=== PATIENT | female | born 1980 | race Caucasian/White ===

== ENCOUNTER 2021-10-11 16:57 | Emergency (ER) | payer MEDICAID, OTHER ==
[2021-10-11] MEDS ORDERED: IBUPROFEN 800 MG (MOTRIN) TAB PO STA (17:15)
[2021-10-11] MEDS ORDERED: HYDROcodone/APAP 5 MG/325 MG (LORTAB) TAB PO STA (17:15)
--- NOTE | 2021-10-11 17:36 | ED Lower Extremity ---
General Chief Complaint: Lower Extremity Stated Complaint: RT FOOT PAIN Source: patient History of Present Illness Date Seen by Provider: Oct 11, 2021 Time Seen by Provider: 17:03 Initial Comments 40-year-old female presenting with complaints of severe pain in her right ankle. She states that she had gone out the door and the ground was uneven. She had t wisted and rolled her ankle and had sudden severe pain. Started to bruise almost immediately. She also was not able to bear weight due to the pain. She has had some alcohol drinks this evening. She denies any fall or head injury. She denies having problems with that ankle or foot in the past. She has pain that radiates up her leg but no pain with palpation on her knee. She is visiting from [place] Onset: just prior to arrival Severity: severe Pain/Injury Location: right ankle Method of Injury: twisted Modifying Factors: Worse With Movement Allergies and Home Medications Allergies Coded Allergies: No Known Drug Allergies (Unverified , 10/11/21) Patient Home Medication List Home Medication List Reviewed: Yes Hydrocodone/Acetaminophen (Hydrocodone-Acetamin 5-325 mg) 5 Mg-325 Mg Tablet, 1 TAB PO Q4H PRN for PAIN-SEVERE (8-10) Prescribed by: ALFREDO MALIK on 10/11/211819 Ibuprofen (Ibuprofen) 800 Mg Tablet, 800 MG PO Q8H PRN for PAIN Prescribed by: ALFREDO MALIK on 10/11/211819 Review of Systems Constitutional: No chills, No fever EENTM: no symptoms reported Respiratory: no symptoms reported Cardiovascular: no symptoms reported Gastrointestinal: no symptoms reported Genitourinary: no symptoms reported Musculoskeletal: see HPI Skin: see HPI Psychiatric/Neurological: Anxiety, Other (burning sensation in ankle) Past Ubilbnx-Mzerfh-Csjumc Hx Patient Social History Alcohol Use?: Yes Alcohol type: Hard Liquor Physical Exam Vital Signs Vital Signs - First Documented 10/11/21 17:06 Temp 36.4 Pulse 105 Resp 18 B/P (MAP) 113/49 (70) Pulse Ox 97 O2 Delivery Room Air Capillary Refill : Height, Weight, BMI Height: '" Weight: lbs. oz. kg; BMI Method: General Appearance: severe distress (crying out in pain), obese Cardiovascular: normal peripheral pulses Ankles: right ankle ecchymosis (mild bruising starting to show up on lateral ankle and foot. ), right ankle limited range of motion, right ankle pain (severe pain with palpation and movement. decreased ROM due to pain), right ankle soft tissue tenderness, right ankle swelling Neurologic/Tendon: normal sensation Neurologic/Psychiatric: alert, oriented x 3 Skin: warm/dry, ecchymosis (faint bruising to right lateral ankle and foot) Progress/Results/Core Measures Results/Orders My Orders Orders - ALFREDO MALIK MD Hydrocodone/Apap 5/325 Tablet (Lortab 5 (10/11/21 17:15) Ibuprofen Tablet (Motrin Tablet) (10/11/21 17:15) Ice: Apply To Affected Area (10/11/21 17:20) Ankle 3 View Right (10/11/21 17:20) Crutches (10/11/21 18:00) Ed Ortho/Other Supplies Order (10/11/21 18:00) Orthopedic Equiment (10/11/21 18:00) Vital Signs/I&O 10/11/21 10/11/21 17:06 18:27 Temp 36.4 36.4 Pulse 105 87 Resp 18 18 B/P (MAP) 113/49 (70) 115/49 Pulse Ox 97 99 O2 Delivery Room Air Room Air Progress Progress Note #1: Progress Note Ordered hydrocodone and ibuprofen to try and help with pain. Ice and elevation to help with pain. X-rays of the right ankle to evaluate for possible fracture or bony injury. Progress Note #2: Progress Note No obvious fracture on the x-rays. Counseled patient to use crutches for weightbearing as tolerated and a walking boot. Try to elevate and ice the ankle to help with pain. If not seeing improvement over the next 5 to 7 days follow- up with primary provider or orthopedics back in [place] where she lives. They may have to do an MRI or additional imaging. Prescription for hydrocodone and ibuprofen sent to the pharmacy. Diagnostic Imaging Diagonstic Imaging: Xray Plain Films/CT/US/NM/MRI: ankle Comments [facility], [place] NAME: ORESTES MARRERO [facility] REC#: [id number] PT STATUS: REG ER : 1980 PHYSICIAN: ALFREDO MALIK MD ADMIT DATE: 10/11/21/ER FS Draft Date of Exam:10/11/21 ANKLE 3 VIEW RIGHT EXAM: Ankle 3 view right INDICATION: Right ankle pain. COMPARISON: None. FINDINGS: No fracture or malalignment. Soft tissue shadows are IMPRESSION: No acute radiographic findings in the right ankle. Dictated on workstation # [id number] Dict: 10/11/21 1753 Trans: 10/11/21 175 [facility] [id number] Interpreted by: WILBERT GORMAN MD Electronically signed by: Reviewed: Reviewed by Me Departure Impression Primary Impression: Severe sprain of right ankle Qualified Codes: S93.401A - Sprain of unspecified ligament of right ankle, initial encounter Additional Impression: Right ankle pain Qualified Codes: M25.571 - Pain in right ankle and joints of right foot Disposition: 01 HOME, SELF-CARE Condition: Stable Departure-Patient Inst. Decision time for Depature: 18:03 Patient Instructions: Ankle Sprain ED, How to Use Crutches, Using Cold for Pain, Walking Boot Add. Discharge Instructions: Wear boot to help stabilize ankle and foot. Wear this for the next 1-2 weeks until you follow up with clinic Call Wednesday to see about follow up with clinic, either primary care or orthopedics to recheck your ankle and foot. If not improving over the next 5-7 days they may need to repeat xrays or get MRI to look at tendons and ligaments. Use Crutches for weight bearing as tolerated. Use the Ibuprofen to help with pain and inflammation and Hydrocodone/Acetaminophen for severe pain. Keep your foot and ankle elevated above waist level as much as possible. This will help with swelling and pain. Apply ice 20-30 minutes every few hours as needed for pain and swelling. All discharge instructions reviewed with patient and/or family. Voiced understanding. Scripts Hydrocodone/Acetaminophen (Hydrocodone-Acetamin 5-325 mg) 5 Mg-325 Mg Tablet 1 TAB PO Q4H PRN for PAIN-SEVERE (8-10) for 5 Days, #30 TAB 0 Refills Prov: ALFREDO MALIK MD 10/11/21 Ibuprofen (Ibuprofen) 800 Mg Tablet 800 MG PO Q8H PRN for PAIN for 10 Days, #30 TAB 0 Refills Prov: ALFREDO MALIK MD 10/11/21 Work/School Note: Work Release Form Date Seen in the Emergency Department: Oct 11, 2021 Return to Work: Oct 13, 2021 Restrictions: No Sports-Until Released Other Restrictions Listed Below: Crutches and boot weight bearing as tolerated x 2 weeks ALFREDO MALIK MD Oct 11, 2021 17:36
--- NOTE | 2021-10-11 17:54 | Diagnostic Imaging Report ---
EXAM: Ankle 3 view right INDICATION: Right ankle pain. COMPARISON: None. FINDINGS: No fracture or malalignment. Soft tissue shadows are IMPRESSION: No acute radiographic findings in the right ankle. Dictated by: Dictated on workstation # [id number]
[2021-10-11] MEDS ORDERED: IBUP-1780 PO (18:20)
[2021-10-11] MEDS ORDERED: ACHD5005 PO (18:20)
[2021-10-11 18:27] VITALS: BP 115/49
== END 2021-10-11 18:41 | disposition home or self-care (01) ==
LOC: ER FS 17:01
DX: S93.401A Sprain of unspecified ligament of right ankle, initial encounter (principal); X50.1XXA Overexertion from prolonged static or awkward postures, initial encounter
CPT/HCPCS: 73610; 99283; L2114